=== PATIENT | male | born 1975 | race Caucasian/White ===

== ENCOUNTER 2016-07-12 17:08 | Emergency (ER) | payer OTHER ==
[2016-07-12 17:28] VITALS: RESP 20
[2016-07-12] MEDS ORDERED: ACETAMINOPHEN/CODEINE 300/30MG TAB PO ONE (18:16)
[2016-07-12] MEDS ORDERED: IBUPROFEN 200 MG TAB PO ONE (18:19)
--- NOTE | 2016-07-12 18:19 | UCPHY ---
H & P Time Seen by Provider: 07/12/16 17:50 Patient Type: New HPI/ROS: This patient reports 3 day history of fevers at times high with chills and myalgias as prominent symptoms. He has occasional dry cough and a sore throat as well. His was diagnosed with influenza recently. He reports partial improvement from [id number] antipyretics with no other exacerbating or alleviating factors. ROS: Mild fatigue. No other constitutional symptoms. HEENT: No sinus pain. No difficulty tolerating p.o. intake. No ear pain. Pulmonary: No pleuritic pain. No dyspnea. Cardiovascular: No lightheadedness. GI: No vomiting. : No symptoms. Integumentary: No rash. 10 point ROS is otherwise negative. Past Medical/Surgical History: GERD. Otherwise healthy Smoking Status: Never smoked Physical Exam: Physical Exam Vital signs are normal the exception of fever and mild tachycardia and hypertension General: No acute distress HEENT: Nose: Clear discharge bilaterally. No sinus tenderness to percussion. Ears: External canals and tympanic membranes are clear with no erythema or abnormal findings bilaterally. Oropharynx: No erythema or exudates. No dysphonia. No drooling or stridor. Eyes: Pupils equal and react to light. Extraocular motions are intact. Neck: Supple with no meningismus. Lungs: Clear to auscultation bilaterally with no rales, rhonchi or wheeze. No respiratory distress. Cardiac: Mild tachycardia with no murmur gallop or rub Skin: No rash or pallor. Neuro: Alert with no focal deficits noted. Initial differential diagnosis: Influenza, viral syndrome, strep pharyngitis, Constitutional: Initial Vital Signs Temperature (C) 38.2 C 07/12/16 17:22 Heart Rate 109 H 07/12/16 17:22 Respiratory Rate 20 07/12/16 17:22 Blood Pressure 179/103 H 07/12/16 17:22 O2 Sat (%) 95 07/12/16 17:22 O2 Delivery Mode Room Air Allergies/Adverse Reactions: No Known Allergies Allergy (Unverified 07/12/16 17:21) Home Medications: Medication Instructions Recorded Aspirin 07/12/16 Guaifenesin/Codeine Phosphate 5 - 10 ml PO Q6 PRN #120 ml 07/12/16 [Guaifenesin-Codeine Liquid] Omeprazole 07/12/16 MDM/Departure - MDM Diagnostics: + FLu A Medications Given: Discontinued Medications Acetaminophen/Codeine Phosphate (Tylenol #3) 2 tab PO EDNOW ONE Stop: 07/12/16 18:17 Last Admin: 07/12/16 18:32 Dose: 2 tab Ibuprofen (Motrin) 600 mg PO EDNOW ONE Stop: 07/12/16 18:20 Last Admin: 07/12/16 18:32 Dose: 600 mg ED Course/Re-evaluation: Rapid influenza is positive. Patient is treated with ibuprofen. I counseled regarding influenza. No clinical evidence of lower respiratory infection other concerning findings. - Depart Disposition: Home, Routine, Self-Care Clinical Impression: Influenza A Condition: Good Instructions: Influenza (ED) Additional Instructions: Diagnosis: Influenza A Plan: Humidifier Ibuprofen as needed for cough fevers or chills Humidifier Guaifenesin with codeine if needed for cough prevents sleep. For tonight since pharmacies are closed, Tylenol No. 3 at bedtime the uses a cough suppressant Your symptoms should gradually improve over the next 3-5 days. Try to avoid being around many people until your fevers have resolved or still contagious fully have fevers. Prescriptions: Guaifenesin/Codeine Phosphate [Guaifenesin-Codeine Liquid] 5 - 10 ml PO Q6 PRN # 120 ml PRN Reason: Cough Referrals: LEWIS PURI MD [Other] - As per Instructions - PQRS PQRS Measurement: NA
[2016-07-12 18:34] VITALS: BP 168/84; PULSE 100; O2SAT 94
[2016-07-12 18:35] VITALS: TEMP 99.9
== END 2016-07-12 18:34 | disposition home or self-care (01) ==
LOC: CED 17:08
DX: J11.1 Influenza due to unidentified influenza virus with other respiratory manifestations (principal)
CPT/HCPCS: 87400-PO; 87880-PO; 99203-PO; G0463-PO